=== PATIENT | female | born 1975 | race Hispanic/Latino ===

== ENCOUNTER 2023-12-08 14:23 | Emergency (ER) | payer OTHER ==
[~2023-12-08] VITALS: Ht 157.5 cm; Wt 76.2 kg
[2023-12-08] MEDS ORDERED: IBUP-2070 PO ×2 (16:01→16:48)
[2023-12-08] MEDS ORDERED: CYCL-309 PO ×2 (16:01→16:48)
[2023-12-08] MEDS: KETOROLAC 30MG VIAL (30MG/ML) IVP ONE (16:37)
[2023-12-08 17:04] VITALS: BP 146/85; PULSE 86; RESP 16; O2SAT 99
== END 2023-12-08 17:15 | disposition home or self-care (01) ==
LOC: EDH 14:23
DX: S13.4XXA Sprain of ligaments of cervical spine, initial encounter (principal); E11.9 Type 2 diabetes mellitus without complications; I10 Essential (primary) hypertension; V89.2XXA Person injured in unspecified motor-vehicle accident, traffic, initial encounter; Y93.89 Activity, other specified; Y92.89 Other specified places as the place of occurrence of the external cause; Y99.8 Other external cause status
CPT/HCPCS: 72125; J1885